=== PATIENT | male | born 1970 ===

== ENCOUNTER 2018-08-22 23:09 | Emergency (ER) | payer MEDICAID ==
[2018-08-22] MEDS ORDERED: LORazepam 1 MG TAB PO ONE (23:31)
--- NOTE | 2018-08-22 23:32 | EDPHY ---
H & P Time Seen by Provider: 08/22/18 23:20 HPI/ROS: CHIEF COMPLAINT: 48-year-old male here with complaint of concern for alcohol abuse and continued auditory hallucinations HISTORY OF PRESENT ILLNESS: Patient is a 48-year-old male with a history of auditory hallucinations and alcohol abuse states that he was recently admitted for 3 days to [facility] and discharged on Risperdal. She states she did not feel that he was stable and began drinking once he was discharged. States he wanted to stay admitted and be transferred to a place where he could be treated for alcohol use and stabilized further. States he has continued auditory hallucinations but denies any suicidal or homicidal ideation. REVIEW OF SYSTEMS: Constitutional: No fever, no chills. Eyes: No discharge. ENT: No sore throat. Cardiovascular: No chest pain, no palpitations. Respiratory: No cough, no shortness of breath. Gastrointestinal: No abdominal pain, no vomiting. Genitourinary: No hematuria. Musculoskeletal: No back pain. Skin: No rashes. Neurological: No headache. (Thomas Cross) Physical Exam: General Appearance: Alert and no distress. Neuro: Alert and oriented. No focal neurologic cranial nerve deficits on exam. Eyes: Pupils equal and round no injection. Respiratory: Chest is nontender, lungs are clear to auscultation. Cardiac: regular rate and rhythm. Gastrointestinal: Abdomen is soft and nontender, no masses, bowel sounds normal. Musculoskeletal: Neck is supple and nontender. Extremities have full range of motion and are nontender. Skin: No rashes or lesions. (Thomas Cross) Constitutional: Initial Vital Signs Temperature (C) 36.4 C 08/22/18 23:16 Heart Rate 110 H 08/22/18 23:16 Respiratory Rate 14 08/22/18 23:16 Blood Pressure 132/96 H 08/22/18 23:16 O2 Sat (%) 93 08/22/18 23:16 O2 Delivery Mode Room Air Allergies/Adverse Reactions: amoxicillin Allergy (Verified 08/22/18 23:13) cephalexin [From Keflex] Allergy (Verified 08/22/18 23:13) Penicillins Allergy (Verified 08/22/18 23:13) Medical Decision Making ED Course/Re-evaluation: Patient is requesting further psychiatric evaluation and transfer to alcohol treatment center. He is voluntary and not suicidal homicidal or greatly impaired. He is given 1 mg of Ativan and feels improved. He is awaiting psychiatric evaluation. He is medically cleared. The time of the end of my shift he is awaiting psychiatric assessment and possible placement. He is signed out to Dr. Barrow pending psychiatric evaluation. (Thomas Cross) PHYSICIAN DOCUMENTATION: The patient was evaluated and managed by the Physician Admissions Clinician. My co- signature indicates that I have reviewed this chart and I agree with the findings and plan of care as documented. I am the secondary supervising physician. The patient was observed overnight in the hallway and slept for most of his time here. He was requesting mental health evaluation because he feels he was prematurely discharged from his recent psychiatric hospitalization. He was intoxicated with alcohol though metabolized his alcohol overnight. At about 7: 00 a.m. He awoke and walked out of the emergency department. (Renita Barrow) Differential Diagnosis: Electrolyte disturbance, toxication, intracranial mass, psychosis (Thomas Cross) Other Provider: Patient left during Pushpa's shift, I did not participate in his care or evaluation. (Andrea Abreu) - Data Points Laboratory Results: Laboratory Results 08/22/18 23:45 08/22/18 23:45 08/22/18 08/22/18 08/22/18 23:45 23:45 23:45 WBC 9.64 10^3/uL H 10^3/uL (3.80-9.50) RBC 5.17 10^6/uL 10^6/uL (4.40-6.38) Hgb 16.2 g/dL g/dL (13.7-17.5) Hct 46.4 % % (40.0-51.0) MCV 89.7 fL fL (81.5-99.8) MCH 31.3 pg pg (27.9-34.1) MCHC 34.9 g/dL g/dL (32.4-36.7) RDW 13.9 % % (11.5-15.2) Plt Count 217 10^3/uL 10^3/uL (150-400) MPV 9.4 fL fL (8.7-11.7) Neut % (Auto) 75.3 % H % (39.3-74.2) Lymph % (Auto) 14.7 % L % (15.0-45.0) [place] % (Auto) 8.0 % % (4.5-13.0) Eos % (Auto) 1.2 % % (0.6-7.6) Baso % (Auto) 0.4 % % (0.3-1.7) Nucleat RBC Rel Count 0.0 % % (0.0-0.2) Absolute Neuts (auto) 7.25 10^3/uL H 10^3/uL (1.70-6.50) Absolute Lymphs (auto) 1.42 10^3/uL 10^3/uL (1.00-3.00) Absolute Monos (auto) 0.77 10^3/uL 10^3/uL (0.30-0.80) Absolute Eos (auto) 0.12 10^3/uL 10^3/uL (0.03-0.40) Absolute Basos (auto) 0.04 10^3/uL 10^3/uL (0.02-0.10) Absolute Nucleated RBC 0.00 10^3/uL 10^3/uL (0-0.01) Immature Gran % 0.4 % % (0.0-1.1) Immature Gran # 0.04 10^3/uL 10^3/uL (0.00-0.10) Sodium 141 mEq/L mEq/L (135-145) Potassium 4.2 mEq/L mEq/L (3.3-5.0) Chloride 106 mEq/L mEq/L (97-110) Carbon Dioxide 20 mEq/l L mEq/l (22-31) Anion Gap 15 mEq/L mEq/L (8-16) BUN 7 mg/dL mg/dL (7-23) Creatinine 0.8 mg/dL mg/dL (0.7-1.3) Estimated GFR > 60 Glucose 94 mg/dL mg/dL (70-100) Calcium 9.4 mg/dL mg/dL (8.5-10.4) Salicylates < 1.0 mg/dL L mg/dL (2.0-20.0) Urine Opiates Screen NEGATIVE (NEGATIVE) Acetaminophen < 10 mcg/mL L mcg/mL (10-30) Urine Barbiturates NEGATIVE (NEGATIVE) Ur Phencyclidine Scrn NEGATIVE (NEGATIVE) Ur Amphetamine Screen NEGATIVE (NEGATIVE) U Benzodiazepines Scrn NON-NEGATIVE H (NEGATIVE) Urine Cocaine Screen NEGATIVE (NEGATIVE) U Marijuana (THC) Screen NEGATIVE (NEGATIVE) Ethyl Alcohol 148 mg/dL H mg/dL (0-10) Medications Given: Discontinued Medications Lorazepam (Ativan) 1 mg PO EDNOW ONE Stop: 08/22/18 23:32 Last Admin: 08/23/18 00:00 Dose: 1 mg Departure - Departure Disposition: Home, Routine, Self-Care Clinical Impression: Alcoholic intoxication Qualifiers: Complication of substance-induced condition: uncomplicated Qualified Code(s): F10.920 - Alcohol use, unspecified with intoxication, uncomplicated Condition: Good Referrals: [facility],. [Clinic] - As per Instructions
[2018-08-23 00:06] LABS: PLATELET COUNT 217 10^3/uL (150-400)
[2018-08-23 06:48] VITALS: BP 134/70
== END 2018-08-23 06:45 | disposition home or self-care (01) ==
LOC: EDUNIT# → EDBD
DX: F10.920 Alcohol use, unspecified with intoxication, uncomplicated (principal); Y90.6 Blood alcohol level of 120-199 mg/100 ml
CPT/HCPCS: 80305; G0480